=== PATIENT | female | born 1930 | race Caucasian/White ===

== ENCOUNTER 2016-07-17 12:27 | Emergency (ER) | payer MEDICARE ==
--- NOTE | ~2016-07-17 | ER ---
PATIENT'S NAME: [facility] AGE: 85 Y [address] ROOM: [place] [address] LOCATION: [facility] ADMIT DATE: 07/17/2016 ER/Outpatient Report DISCHARGE DATE: 07/17/2016 FAMILY PHYSICIAN: Physician, Unknown ATTENDING PHYSICIAN: Bill Varela Time of Arrival: 1227 hours. Time of Evaluation: 1227 hours. CHIEF COMPLAINT: Fall, head injury. HISTORY OF PRESENT ILLNESS: The patient states approximately 11 o'clock today, they had been shopping at [employer]. She was checking out when she said her legs just became very weak. She ended up falling and hitting the back of her head on the bottom of a grocery cart. She denies any loss of consciousness. She states she was not dizzy or lightheaded. Her legs just became weak and she is not really quite sure why. She denies having any chest pain, has not felt short of breath, had not been feeling ill [facility] States she does have a headache. Denies any vision changes. ALLERGIES: CEPHALEXIN. MEDICATIONS: On her chart and reviewed by me. PAST MEDICAL HISTORY: Xnd-krsropv-olqvnvbku diabetes, hypertension, and elevated cholesterol. SOCIAL HISTORY: She presents with a relative. She states her grandson is getting today. She denies any use of tobacco, drugs, or alcohol. REVIEW OF SYSTEMS: All negative other than those mentioned in the HPI. PHYSICAL EXAMINATION: VITAL SIGNS: She weighed 64.6 kg, blood pressure is 145/91, pulse of 97, respirations 16, temperature of 98.6, and O2 saturation is 98% on room air. GENERAL: She is awake, alert, and oriented x4. SKIN: [place], warm, and dry. RESPIRATIONS: Even and nonlabored. HEENT: Pupils are equal and reactive to light. Extraocular movement is PATIENT'S NAME: [facility]O [facility] AGE: 85 Y [address] ROOM: [place] [address] LOCATION: [facility] ADMIT DATE: 07/17/2016 ER/Outpatient Report DISCHARGE DATE: 07/17/2016 FAMILY PHYSICIAN: Physician, Unknown ATTENDING PHYSICIAN: Bill Varela intact. Negative nystagmus. TMs are clear. Nasal is boggy. Oropharynx is clear. NECK: Supple. No lymphadenopathy. LUNGS: Lung sounds are clear throughout. HEART: Regular rate and rhythm. ABDOMEN: Soft. Nondistended. Bowel sounds are present. NEURO: The patient walked in with a steady even gait. She does have abrasion to the posterior scalp area. LABORATORY DATA AND X-RAYS: CT scan was completed. Radiologist reports no acute findings. Accu-Chek was done, it was 195. EMERGENCY DEPARTMENT COURSE: The patient was given Tylenol 1000 mg p.o. IMPRESSION: Head injury due to fall. PLAN: Home. Rest. Fluids. Tylenol as needed for discomfort. She is to follow up with her primary provider in 2 days or return to the ER as needed. She and her family verbalized understanding. JUAN OLIVARES APRN FOR MD JAMMIE HOLLIDAY/rhett /[id number] d: 07/17/16 1827 t: 07/20/16 1124, OUTPATIENT REPORT
== END 2016-07-17 14:10 | disposition disaster alternative care site (69) ==
LOC: GACC 12:27
DX: S09.90XA Unspecified injury of head, initial encounter (principal); E11.9 Type 2 diabetes mellitus without complications; I10 Essential (primary) hypertension; E78.00 Pure hypercholesterolemia, unspecified; W01.198A Fall on same level from slipping, tripping and stumbling with subsequent striking against other object, initial encounter; Y92.59 Other trade areas as the place of occurrence of the external cause; Y93.89 Activity, other specified; Z88.1 Allergy status to other antibiotic agents; Z79.899 Other long term (current) drug therapy

== ENCOUNTER → 2016-07-17 | Emergency (ER) | payer MEDICARE | END | disposition disaster alternative care site (69) | LOC: GAMB 10:59 | DX: S09.90XA Unspecified injury of head, initial encounter (principal); S01.91XA Laceration without foreign body of unspecified part of head, initial encounter; S01.90XA Unspecified open wound of unspecified part of head, initial encounter; R58 Hemorrhage, not elsewhere classified; R42 Dizziness and giddiness; W19.XXXA Unspecified fall, initial encounter ==